=== PATIENT | male | born 1970 | race Caucasian/White ===

== ENCOUNTER → 2019-04-09 | Outpatient (CLI) | payer BC ==
[2014-01-16 20:12] VITALS: BP 122/80
== END ==
LOC: RAD 09:50
DX: K76.0 Fatty (change of) liver, not elsewhere classified (principal)

== ENCOUNTER → 2021-01-12 | Day surgery (SDC) | payer BC ==
[2014-01-16 20:12] VITALS: BP 122/80
== END | disposition home or self-care (01) ==
LOC: MSO 07:16
DX: Z12.11 Encounter for screening for malignant neoplasm of colon (principal); K63.89 Other specified diseases of intestine; G47.33 Obstructive sleep apnea (adult) (pediatric); I10 Essential (primary) hypertension; F17.220 Nicotine dependence, chewing tobacco, uncomplicated
CPT/HCPCS: 00811; J2704; J7120